=== PATIENT | male | born 1945 | race Caucasian/White ===

== ENCOUNTER 2017-07-26 18:58 | Emergency (ER) | payer MEDICARE ==
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
== END 2017-07-27 06:35 | disposition home or self-care (01) ==
LOC: ER 18:58
DX: F10.20 Alcohol dependence, uncomplicated (principal); R53.1 Weakness; Z59.0 Homelessness
CPT/HCPCS: Z7502